=== PATIENT | male | born 1995 | race Two or more races ===

== ENCOUNTER 2024-08-12 17:23 | Emergency (ER) | payer OTHER ==
[~2024-08-12] VITALS: Ht 167.6 cm; Wt 81.6 kg
[2024-08-12] MEDS ORDERED: 0.9 % SODIUM CHLORIDE 1,000 ML IV STA (18:00)
[2024-08-12] MEDS ORDERED: MORPHINE SULFATE 4 MG/ML VIAL IV ONE ×2 (18:15→21:00)
[2024-08-12 19:25] LABS: BASO % 0.6 % (0.1-1.2); HEMATOCRIT 40.2 % (40.1-51.0); HEMOGLOBIN 14.2 g/dL (13.7-17.5); LYMPH # 0.89 (1.18-3.74); LYMPH % 12.7 % (19.3-53.1); MEAN CORPUSCULAR HEMOGLOBIN 27.7 pg (25.6-32.2); MONO % 5.7 % (4.7-12.5); NEUT # 5.65 (1.56-6.13); NEUT % 80.6 % (34.0-71.1); PLATELET COUNT 220 K/uL (163-369); RED BLOOD COUNT 5.13 M/uL (4.63-6.08)
[2024-08-12 19:34] LABS: CALCIUM 8.4 mg/dL (8.5-10.1); CREATININE SERUM 1.18 mg/dL (0.70-1.30); GFR 74.05; POTASSIUM 3.8 mEq/L (3.5-5.1)
[2024-08-12 20:04] LABS: URINE APPEARANCE Clear; URINE BILIRRUBIN Negative (NEGATIVE); URINE BLOOD Negative; URINE COLOR Yellow; URINE GLUCOSE Negative (NEGATIVE); URINE LEUKOCYTE Negative; URINE NITRATE Negative; URINE PROTEIN 30 (NEGATIVE)
[2024-08-12 20:09] LABS: URINE BACTERIA 15.9 uL (0.0-1933); URINE EPITHELIAL CELLS 4.5 uL (0.0-38.8); URINE RBC 3.8 uL (0.0-20.8); URINE WBC 6.1 uL (0.0-23.2)
[2024-08-12 20:37] LABS: URINE KETONE >=160 (NEGATIVE)
[2024-08-12] MEDS ORDERED: ONDANSETRON HCL 2 MG/ML VIAL IV STA ×2 (20:46→23:02)
[2024-08-12] MEDS ORDERED: ONDANSETRON HCL 2 MG/ML VIAL ONE ×2 (20:56→23:16)
[2024-08-12] MEDS ORDERED: MAG HYDROX/ALUMINUM HYD/SIMETH 30 ML BLIST.PACK PO ONE (21:17)
[2024-08-12] MEDS ORDERED: METOCLOPRAMIDE HCL 10 MG in DEXTROSE 5 % IN WATER 50 ML IV ONE (23:15)
[2024-08-12] MEDS ORDERED: METOCLOPRAMIDE HCL 5 MG/ML VIAL ONE (23:16)
[2024-08-13] MEDS ORDERED: HYOSCYAMINE SULFATE 0.125 MG TAB.SUBL SL STA (00:41)
[2024-08-13] MEDS ORDERED: FAMOTIDINE/PF 20 MG/2 ML VIAL IV PUSH STA (00:41)
[2024-08-13] MEDS ORDERED: PROMETHAZINE HCL 50 MG/ML AMPUL IM STA (00:41)
[2024-08-13] MEDS ORDERED: PROMETHAZINE HCL 50 MG/ML AMPUL IM ONE (00:43)
[2024-08-13] MEDS ORDERED: HYOSCYAMINE SULFATE 0.125 MG TAB.SUBL ONE (00:43)
[2024-08-13] MEDS ORDERED: FAMOTIDINE/PF 20 MG/2 ML VIAL ONE (00:44)
[2024-08-13] MEDS ORDERED: PEPCID40 MG PO (08:08)
[2024-08-13] MEDS ORDERED: INTESTINEX680 M2 PO (08:08)
[2024-08-13] MEDS ORDERED: PROTONIX40 MG PO (08:08)
[2024-08-13] MEDS ORDERED: PHENERGAN25 MG PO (08:08)
== END 2024-08-13 09:42 ==
LOC: ER 17:23
PROVIDERS: Emergency Medicine
DX: K52.89 Other specified noninfective gastroenteritis and colitis (principal)